=== PATIENT | female | born 1980 | race Caucasian/White ===

== ENCOUNTER 2018-09-14 18:56 | Inpatient (IN) ==
[2018-09-14 20:25] LABS: URINE SOURCE CLEAN CATCH
[2018-09-14 20:28] LABS: BILIRUBIN URINE NEGATIVE (NEGATIVE); BLOOD URINE NEGATIVE (NEGATIVE); COLOR YELLOW; GLUCOSE URINE NEGATIVE (NEGATIVE); KETONE URINE NEGATIVE (NEGATIVE); LEUKOCYTES URINE NEGATIVE (NEGATIVE); NITRITE URINE NEGATIVE (NEGATIVE); PROTEIN URINE TRACE mg/dL (NEGATIVE); SP GRAVITY URINE 1.021; TURBIDITY URINE CLEAR (CLEAR); UROBILINOGEN URINE NORMAL (NORMAL)
[2018-09-14 20:29] LABS: UR EPITHELIAL CELLS <10 /HPF (<10); URINE BACTERIA NEGATIVE /HPF; URINE RBC <10 /HPF (<10); URINE WBC <10 /HPF (<10)
[2018-09-14 20:50] LABS: BASO# 0.04 X1000 (0.0-0.2); BASO% 0.4 % (0.0-0.8); EOS# 0.08 X1000 (0.0-0.7); EOS% 0.8 % (0.0-10.0); HEMATOCRIT 44.8 % (37.0-47.0); HEMOGLOBIN 14.9 g/dL (12.0-16.0); IMM GRAN# 0.02 X1000 (0.0-0.04); IMM GRAN% 0.2 % (0.0-0.5); LYMPH# 2.18 X1000 (1.2-3.4); LYMPH% 22.5 % (20.5-51.1); MCH 31.6 PG (27-31); MCHC 33.3 g/dL (33-37); MCV 94.9 FL (81-99); MONO# 0.94 X1000 (0.11-0.59); MONO% 9.7 % (1.7-9.3); MPV 11.9 FL (7.4-10.4); NEUT# 6.45 X1000 (1.4-6.5); NEUT% 66.4 % (42.2-75.2); PLT 240 X1000 (130-400); RBC 4.72 XMIL (4.2-5.4); RDW 12.4 % (11.5-14.5); WBC 9.71 X1000 (4.8-10.8)
[2018-09-14 21:11] LABS: AGAP 12; ALBUMIN 4.1 g/dL (3.5-5.0); ALKALINE PHOSPHATASE 73 U/L (32-104); AMYLASE 56 U/L (20-200); BUN 8 mg/dL (8-22); CHLORIDE 104 mmol/L (98-107); COSMO 279; CREATININE 0.7 mg/dL (0.5-0.9); ESTIMATED GFR > 60; GLUCOSE 83 mg/dL (70-104); GOT 15 U/L (10-30); GPT 24 U/L (10-36); LIPASE 21 U/L (13-60); POTASSIUM 3.9 mmol/L (3.5-5.1); SODIUM 141 mmol/L (136-145); TCO2 25 mmol/L (25-35); TOTAL BILIRUBIN 0.44 mg/dL (0.20-1.00); TOTAL PROTEIN 8.1 g/dL (6.3-8.3)
[2018-09-14] MEDS ORDERED: ZOFRAN IM ONE (22:15)
[2018-09-14] MEDS ORDERED: NS 1,000 ML IV ONE (22:15)
[2018-09-14] MEDS ORDERED: TORADOL IV ONE (22:16)
[2018-09-15] MEDS ORDERED: TORADOL IV ONE (00:13)
[2018-09-15] MEDS ORDERED: ZOFRAN IM ONE (00:14)
--- NOTE | 2018-09-15 00:21 | PROVIDER DOCUMENTATION ---
This chart was entered by Talisha Reyna Scribe, acting as scribe for Toni Zamorano MD. HPI-Abdominal Pain/GI Problem - General Chief Complaint: Abdominal Pain Stated Complaint: GALLBLADDER PAIN Time Seen by Provider: 09/14/18 20:20 Source: patient Allergies/Adverse Reactions: Patient Allergies Allergy/AdvReac Type Severity Reaction Status Date / Time No Known Allergies Allergy Verified 01/12/13 13:17 Home Medications: Home Medication List Medication Instructions Recorded Confirmed Last Taken Type Amoxicillin 500 mg PO TID #30 tablet 02/28/14 Unknown Rx Naproxen 500 mg PO Q12H PRN PRN #20 tablet 02/28/14 Unknown Rx Prednisone 20 mg PO TID #12 tablet 02/28/14 Unknown Rx - History of Present Illness-ABD Nature of Presenting Problems: 38yof c/o 5 days nausea and vomiting. pt states pain is worse today and abd pain starts in ruq, is consistent and radiates down abd. pt has hx of gall stones and had gall bladder attack 6-8 years ago. pt denies fever, chills, and body aches. Abdominal Pain Onset Location: reports: RUQ Pain Radiation: reports: other (down abd) Quality of Pain: reports: aching Severity in ED: reports: mild Review of Systems - Adult - REVIEW OF SYSTEMS - ADULT Constitutional: reports: no symptoms reported. denies: chills, fever Eyes: reports: no symptoms reported Ears, Nose, Mouth & Throat: reports: no symptoms reported Cardiovascular: reports: no symptoms reported Respiratory: reports: no symptoms reported Gastrointestinal: reports: see HPI, abdominal pain (ruq), nausea, vomiting. denies: constipation, diarrhea, rectal bleeding Genitourinary: reports: no symptoms reported Musculoskeletal: reports: no symptoms reported Integumentary: reports: no symptoms reported Neurological: reports: no symptoms reported Psychiatric: reports: no symptoms reported Endocrine: reports: no symptoms reported Hematologic/Lymphatic: reports: no symptoms reported Allergic/Immunologic: reports: no symptoms reported All Other Systems: Reviewed and Negative Past History - Adult - PAST MEDICAL HISTORY-ADULT Review of Records: reports: Old Records Reviewed, Nursing Assessment Review, Medications Reviewed, Social history reviewed & non-contributory. Major Childhood Illnesses: reports: denies history Cardiovascular: reports: denies history Respiratory: reports: lung disease Gastrointestinal: reports: denies history Obstetrical/Gynecological: reports: denies history Genitourinary: reports: denies history Musculoskeletal: reports: denies history Neurological: reports: denies history Psychiatric: reports: denies history Endocrine/Immune: reports: denies history Other Conditions: reports: denies history - PRIOR SURGERIES/PROCEDURES Surgical/Procedure History: reports: reviewed, not pertinent - PRIOR HOSPITALIZATIONS Prior Hospitalizations: reports: for other non-related - IMMUNIZATION STATUS Childhood Immunizations: See Nurse Assessment Flu Vaccine: See Nurse Assessment - FAMILY HISTORY Family History: reviewed, not pertinent - SOCIAL HISTORY Smoking: cigarettes, greater than 1 pack/day Provider spent 3-5 mins advising pt. on dangers of tobacco.: Discussed manners to quit use, and f/u contacts for add'l counseling. Substance Use: none/never Physical Exam-General - PHYSICAL EXAM-ADULT Initial Vital Signs Reviewed: Yes - CONSTITUTIONAL General Appearance: appears well, alert, no apparent distress - EYES Eyes: PERRL/EOMI - HEAD, EARS, NOSE, MOUTH & THROAT HENMT: normocephalic/atraumatic, moist mucous membranes, normal ENT inspection - NECK Neck: non-tender, full range of motion, supple, normal inspection - RESPIRATORY Respiratory: chest non-tender, lungs clear, normal breath sounds - CARDIOVASCULAR Cardiovascular: normal peripheral pulses, regular rate, rhythm - GASTROINTESTINAL (ABDOMEN) Abdominal Exam: normal bowel sounds, non tender, soft. negative: guarding, rigid, rebound - LYMPHATIC Lymphatic: no adenopathy - MUSCULOSKELETAL Back Exam: normal inspection, no CVA tenderness, no vertebral tenderness Extremity: normal range of motion, non-tender, normal inspection Peripheral Pulses: radial (R): 2+, radial (L): 2+ - SKIN Integumentary: normal color, normal turgor, warm/dry - NEUROLOGIC Neurologic: crayon painter II-XII nml as tested, grossly normal, no motor/sensory deficits - PSYCHIATRIC Psych/Mental Status: normal mood/affect, normal thought content, normal thought process, oriented x 3 Progress - PLAN OF CARE/RESULTS Progress/Plan/Lab Results: Vital Signs - 8 hr 09/14/18 18:59 Temperature 97.9 F Pulse Rate 82 Respiratory Rate 18 Blood Pressure 160/99 O2 Sat by Pulse Oximetry 99 Bedside Urine ED: Urine Bedside Start: 09/14/18 19:04 Freq: ORDERED Status: Active Protocol: Activity Type Activity Date Activity User E-Sign Co-Sign Detail Recorded Client Recorded Date Recorded By Document 09/14/18 20:19 [id number] 09/14/18 20:20 [id number] 09/14/18 20:19 Point of Care [Bedside Point of Care] -Lot # [id number] - Results Negative -Control Line Visible? Yes -Additional Comment exp 2019-12-29 Laboratory Results - last 24 hr 09/14/18 09/14/18 09/14/18 19:12 19:12 20:13 WBC 9.71 RBC 4.72 Hgb 14.9 Hct 44.8 MCV 94.9 MCH 31.6 H MCHC 33.3 RDW Std Deviation 12.4 Plt Count 240 MPV 11.9 H Immature Gran % (Auto) 0.2 Neut % (Auto) 66.4 Lymph % (Auto) 22.5 [place] % (Auto) 9.7 H Eos % (Auto) 0.8 Baso % (Auto) 0.4 Immature Gran # (Auto) 0.02 Neut # (Auto) 6.45 Lymph # (Auto) 2.18 [place] # (Auto) 0.94 H Eos # (Auto) 0.08 Baso # (Auto) 0.04 Sodium 141 Potassium 3.9 Chloride 104 Carbon Dioxide 25 Anion Gap 12 BUN 8 Creatinine 0.7 Estimated GFR/1.73 m2 > 60 BUN/Creatinine Ratio 11 Glucose 83 Calculated Osmolality 279 Calcium 9.0 Total Bilirubin 0.44 AST 15 ALT 24 Alkaline Phosphatase 73 Total Protein 8.1 Albumin 4.1 Globulin 4.0 Albumin/Globulin Ratio 1.0 Amylase 56 Lipase 21 Urine Source CLEAN CATCH Urine Color YELLOW Urine Turbidity CLEAR Urine pH 6.0 Ur Specific [place] 1.021 Urine Protein TRACE A Ur Glucose (Stick) NEGATIVE Ur Ketones (Stick) NEGATIVE Urine Blood NEGATIVE Urine Nitrite NEGATIVE Urine Bilirubin NEGATIVE Urobilinogen Dipstick NORMAL Urine Leukocytes NEGATIVE Urine WBC (Auto) <10 Urine RBC (Auto) <10 U Epithel Cells (Auto) <10 Urine Bacteria (Auto) NEGATIVE Orders Category Date Time Status ED: Urine Bedside ORDERED Care 09/14/18 19:04 Active US GB < RUQ (LIMITED) [US] Stat Exams 09/14/18 20:21 Taken AMYLASE [CHEM] Stat Lab 09/14/18 19:12 Completed CBC WITH DIFF [HEME] Stat Lab 09/14/18 19:12 Completed CMP [COMPREHENSIVE METABOLIC PANEL] [CHEM] Stat Lab 09/14/18 19:12 Completed LIPASE [CHEM] Stat Lab 09/14/18 19:12 Completed URINALYSIS W/POSS RFLX CULT [URINALYSIS] Stat Lab 09/14/18 20:13 Completed 0.9% Sodium Chloride Inj [Ns] 1,000 ml Med 09/14/18 22:15 Active IV 999 mls/hr Ketorolac [Toradol] Med 09/14/18 22:16 Discontinued 30 mg IV NOW ONE Ondansetron [Zofran] Med 09/14/18 22:15 Discontinued 4 mg IM NOW ONE A/P: Acute cholycystitis. Dr Hayden notified at 12:05 am, admit to his service, NPO, NS @ 125 / hr, zosysn and ketorolac or pain as pt cannot have opiate RX. Result Diagrams: 09/14/18 19:12 09/14/18 19:12 - CONSULTS/PCP/HOSPITALIST Notification #1 *Consult/PCP/Hospitalist*: Dr Hayden Time Discussed: 12:05 Consult Disposition: Admit (will see pt in am, said place NPO, start NS, Zosyn, and ketoralac.) Departure - Departure Date of Disposition Decision: 09/15/18 Time of Disposition Decision: 00:21 DIAGNOSIS: Acute cholecystitis Disposition: ADMITTED INPATIENT 09 Certified Medical Emergency: Emergent Condition: Stable Additional Freetext Instructions: We have examined and treated you today on an emergency basis only. This was not a substitute for, or an effort to provide, complete medical care. In most cases, you must let your doctor check you again. Tell your doctor about any new or lasting problems. We cannot recognize and treat all injuries or illnesses in one Emergency Department visit. If you had special tests, such as X-rays or CT scans, will be reviewed by radiologist and will call you if there are any new suggestions Follow up with primary care provider in 1 to 2 days if no improvement. If you do not have a primary care provider, you need to choose one as soon as possible. Take medicines as prescribed. Monitor for any side effects or adverse events from medications. If any side effect, adverse event or rash develops, or if you suspect any other adverse reaction to the medication, then discontinue the medication immediately and contact clinic /PCP or go to the nearest ER. Narcotic meds / sedative meds instruction - patent advised not to drive, operate any machinery or go into water after taking meds as it may impair mental ability to react to the situation in an appropriate manner. Continue other current medicines. Follow up with PCP within 24-48 hours, or sooner if symptoms worsen or fail to improve. Patient / guardian verbalizes understanding of treatment plan, medication, and side effects and agrees with treatment plan. Patient leaves ER in stable condition and ambulatory state. Return to ER as needed. Discharge instructions reviewed verbally and given to patient in written form. Follow up with primary care provider. Referrals and Follow-Ups: None,PCP [Primary Care Provider] - - Critical Care Note This patient required my direct & personal management of CC.: No Attestation - Physician/ TAWNY Attestation Patient care was provided by Advanced Practice Provider:: No The physician spent face to face time with patient:: Yes Advanced Practice Provider documentation review:: Supervising physician onsite and consulted in the evaluation and care of this patient. The physician did have a face to face encounter with the patient. This chart was documented by the indicated scribe, (Talisha Reyna, Leora) and accurately reflects the services I performed and decisions made by me, Toni Zamorano MD, as attested by the provider's signature.
[2018-09-15] MEDS: ZOSYN 3.375 GM in NS 50 ML IV SCH ×5 (01:05→23:28)
[2018-09-15] MEDS: NS 1,000 ML IV ONE ×2 (01:16→03:46)
[2018-09-15] MEDS: OFIRMEV 1000 MG/ISOTONIC SOLN 1,000 MG/100 ML BOTTLE IV PRN ×2 (03:58→10:24)
[2018-09-15] MEDS ORDERED: TORADOL IV SCH (05:00)
[2018-09-15] MEDS: TORADOL IV PRN ×2 (05:52→18:11)
--- NOTE | 2018-09-15 06:36 | Diag Imaging Result Doc PS360 ---
US GB < RUQ (LIMITED) - 09/14/2018 INDICATION: RUQ pain TECHNIQUE: COMPARISON: None FINDINGS: The gallbladder is very distended. There is mild wall thickening of the gallbladder measuring 3 mm. There is a large shadowing gallstone the gallbladder measuring 2.4 cm. Common bile duct is slightly enlarged measuring 7 mm. The liver is moderately fatty. There is moderate right hydronephrosis. No right renal mass. The pancreas appears normal. Aorta, IVC, and main portal vein are patent. IMPRESSION: 1. Findings concerning for acute cholecystitis. 2. Moderate right hydronephrosis. Consider a CT renal stone search for further evaluation. 3. Hepatic steatosis. 4. Borderline dilation of the common bile duct, indeterminate. Electronically signed by Antonio Martinez 09/15/2018 6:34 AM
--- NOTE | 2018-09-15 08:18 | HISTORY AND PHYSICAL ---
HISTORY OF PRESENT ILLNESS: Kyra Dove is a 38-year-old white female who presented to our emergency department with right upper quadrant abdominal pain. She had a known gallstone and has had gallbladder attacks in the past. She underwent an ultrasound, which documented a large stone within her gallbladder. Her liver function tests were normal, but there is a question of whether she was beginning to have acute cholecystitis, and we were asked to admit her. PAST MEDICAL HISTORY: She is a smoker of 1 pack of cigarettes a day. She is under rehab for opioid abuse. She is not allowed to take pain medicine. MEDICATIONS: She has taken ibuprofen frequently over the last week. Otherwise, no other medications. ALLERGIES: No known drug allergies. 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 REVIEW OF SYSTEMS: A 14-point review of systems was performed and was essentially negative. FAMILY HISTORY: Noncontributory. PHYSICAL EXAMINATION: GENERAL: Ms. Dove is a young, white female, who is overweight. She is in no acute distress. HEENT: No jaundice. No oral lesions. Satisfactory dentition. No cervical or supraclavicular lymphadenopathy. HEART: Regular rate. LUNGS: Clear to auscultation and percussion bilaterally. ABDOMEN: Soft. She has no previous scars. No evidence of hernia. There is no palpable mass. She did seem to be mildly tender in the right upper quadrant. She had no costovertebral tenderness. RECTAL/VAGINAL: Not performed. EXTREMITIES: She does have palpable peripheral pulses. No peripheral edema. NEUROLOGICAL: No focal deficits. She is awake and cooperative. IMAGING AND LABORATORY DATA: Ultrasound documented gallstones. White blood cell count is normal, hematocrit is 45%. Electrolytes are within normal limits. Liver function tests within normal limits. There is no blood in her urine, and it appears to be clean. IMPRESSION: Symptomatic gallstones in a patient who has been admitted through our emergency department. PLAN: Laparoscopic, possible open cholecystectomy today. I have discussed the procedure in detail with her at the bedside on , including its risks of bleeding, infection, injury to the extrahepatic bile ducts requiring reoperation, conversion of laparoscopic to open cholecystectomy, bile leak requiring reoperation for drainage, and injury to intra-abdominal contents for trocar placement. She understands the need for surgery and its risks, and she wants to proceed. cc: Viki Hayden MD
[2018-09-15] MEDS ORDERED: DIPRIVAN 1% ONE (10:57)
[2018-09-15] MEDS ORDERED: XYLOCAINE-MPF 2% ONE ×2 (10:58→15:15)
[2018-09-15] MEDS ORDERED: QUELICIN (DOSE) ONE ×2 (10:59→15:15)
[2018-09-15] MEDS ORDERED: SENSORCAINE-MPF 0.5%/EPI 1:200,000 ONE (11:47)
[2018-09-15] MEDS ORDERED: LR 1,000 ML ONE ×2 (11:48→14:42)
[2018-09-15] MEDS ORDERED: SODIUM CHLORIDE 0.9% ONE (11:48)
[2018-09-15] MEDS ORDERED: FENTANYL ONE ×2 (12:30→15:18)
[2018-09-15] MEDS ORDERED: DECADRON ONE (13:22)
[2018-09-15] MEDS ORDERED: ZOFRAN ONE (13:22)
[2018-09-15] MEDS ORDERED: TORADOL ONE (13:25)
[2018-09-15] MEDS ORDERED: ROBINUL ONE (13:52)
[2018-09-15] MEDS ORDERED: NEOSTIGMINE ONE (13:52)
[2018-09-15] MEDS: DILAUDID ONE ×2 (14:26→14:29)
--- NOTE | 2018-09-15 14:53 | OPERATIVE NOTE ---
PROCEDURE DATE: 09/15/2018 PREOPERATIVE DIAGNOSIS: Acute cholecystitis with cholelithiasis. POSTOPERATIVE DIAGNOSIS: Acute cholecystitis with cholelithiasis. PRINCIPAL PROCEDURE PERFORMED: Laparoscopic cholecystectomy without intraoperative cholangiogram. SURGEON: Viki Hayden MD. ANESTHESIA: General in addition to local anesthetic. ESTIMATED BLOOD LOSS: 50 mL. DRAINS: None. INDICATIONS: Kyra kaur is a 38-year-old, overweight, white female who presented to our emergency department during the night with epigastric and right upper quadrant pain. Ultrasound suggested gallstones and a thickened gallbladder wall. It was felt that she had acute cholecystitis and she was admitted for a cholecystectomy. FINDINGS: Her gallbladder was tightly distended with white bile within it. The chandler of her gallbladder were thickened and she had stones within the gallbladder. Her cystic duct was quite short and we decided against an intraoperative cholangiogram. The liver appeared to be healthy, as did the surface of the bowel. No other intra-abdominal pathology was noted. DESCRIPTION OF PROCEDURE: The patient was brought to the operating room, placed supine, received general anesthesia, and was intubated. Her abdomen was prepped and draped within a sterile field. We made a small incision below the umbilicus with a 15 blade scalpel. Veress needle was introduced through this incision into the abdomen. Pneumoperitoneum was established. The Veress needle was removed. We placed an 11 mm trocar through this incision into the abdomen. The camera was placed through this port and the abdomen was explored for injury. There was none. Three other trocars were placed along the right costal margin under direct vision of the camera. We placed an 11 mm trocar just to the right of the midline and two 5 mm trocars in our midclavicular and anterior axillary lines. Through our most lateral port, we decompressed the gallbladder with a needle and suction. White bile was sucked out of the gallbladder. The chandler of the gallbladder with thickened and inflamed. I used a grasper with teeth to grab the fundus of the gallbladder through our most lateral port and retracted it superiorly, along with the right lobe of the liver. Another grasper was used to grab the body of the gallbladder. We had to dissect some adhesions between the omentum and the underside of the gallbladder. We dissected those down to the to the triangle of [place] which we bluntly dissected. We identified the cystic duct along its length. It was a short cystic duct. We placed a clip distally at the cystic duct-gallbladder junction. Because this duct was so short and inflamed, we decided against doing a cholangiogram. We were comfortable with the anatomy. Two clips were placed proximally on the cystic duct. We divided the cystic duct between clips using hook scissors. The cystic artery was identified. Again, it was fairly short. Two clips were placed proximally and the cystic artery was divided right along the gallbladder using hook scissors. The spatula cautery was used to remove the gallbladder from the liver bed. We used an endobag to remove the gallbladder through our umbilical incision, which we had to enlarge to get the gallbladder out. We placed the trocar back through this incision. The area of operation was thoroughly inspected, irrigated, and the irrigation was removed with suction. There was no evidence of ongoing bleeding or bile leak. No drains were left. All trocars were removed under direct vision of the camera. The pneumoperitoneum was allowed to dissipate. I used a 0 running Vicryl stitch to reapproximate the fascia at the umbilicus and all skin was closed with 4-0 Monocryl subcuticular stitches. Steri-Strips were applied. She tolerated the procedure well with plans for her to go to the recovery room and then be readmitted to the floor. cc: Viki Hayden MD
[2018-09-15] MEDS ORDERED: SODIUM CHLORIDE 0.9% 0 ML ONE (15:15)
[2018-09-15] MEDS ORDERED: NEO-SYNEPHRINE ONE (15:15)
[2018-09-15] MEDS ORDERED: ZEMURON ONE (15:15)
[2018-09-15] MEDS ORDERED: EPHEDRINE ONE (15:15)
[2018-09-15] MEDS ORDERED: PHENERGAN IV PRN (15:39)
[2018-09-15] MEDS ORDERED: SODIUM CHLORIDE 0.9% INJ PRN (15:45)
[2018-09-15] MEDS: OFIRMEV 1000 MG/ISOTONIC SOLN 1,000 MG/100 ML BOTTLE IV SCH ×2 (16:44→22:19)
[2018-09-15] MEDS: LR 1,000 ML IV SCH (16:45)
[2018-09-15] MEDS: PERIDEX MT SCH (22:19)
[2018-09-16] MEDS: OFIRMEV 1000 MG/ISOTONIC SOLN 1,000 MG/100 ML BOTTLE IV SCH ×2 (03:11→09:26)
[2018-09-16] MEDS: TORADOL IV PRN ×2 (03:15→09:25)
[2018-09-16] MEDS: LR 1,000 ML IV SCH (05:38)
[2018-09-16] MEDS: ZOSYN 3.375 GM in NS 50 ML IV SCH (05:38)
[2018-09-16 08:20] VITALS: BP 121/70
[2018-09-16] MEDS: PERIDEX MT SCH (09:25)
--- NOTE | 2018-09-16 11:23 | DISCHARGE SUMMARY ---
ADMISSION DATE: 09/15/2018 DISCHARGE DATE: 09/16/2018 ADMITTING DIAGNOSIS: Acute cholecystitis with cholelithiasis. DISCHARGE DIAGNOSIS: Acute cholecystitis with cholelithiasis. PRINCIPAL PROCEDURE: Laparoscopic cholecystectomy on 09/15/2018. DISCHARGE DISABILITIES: Full. DISCHARGE MEDICATIONS: Ibuprofen and Tylenol for pain. DISCHARGE DIET: Regular. DISCHARGE DISPOSITION: She will return to our outpatient offices in 7 to 10 days for followup. HOSPITAL COURSE: Ms. Kyra kaur is a 38-year-old, overweight female who has a history of drug abuse that she is working on controlling and did not want to take any pain medicines during her hospitalization. She was seen in our emergency department which included an abdominal ultrasound because of her abdominal pain. It documented gallstones and thickening of the gallbladder wall, consistent with acute cholecystitis. She was admitted to my service by the emergency department physician and later on the day of admission, she went to the operating room for a laparoscopic cholecystectomy. We felt the operation went well. We did not leave any drains and after surgery, she went to the recovery room and then to the [address] [place] [id number] jara. On postop day 1, she appeared to be comfortable. She was independent. Her trocar sites were healing well. She was able to tolerate liquids. At discharge, her heart rate was 67, blood pressure 121/70, O2 saturation 100%. No work of breathing. She was afebrile, on no antibiotic. She knows to contact me with any problems. Otherwise, I will see her in 7 to 10 days. cc: Viki Hayden MD
== END 2018-09-16 12:11 | disposition home or self-care (01) | DRG 419 ==
LOC: ED 18:56 → 4N 09-15 01:05
PROVIDERS: ADMIT Surgery; ATTEND Surgery
CPT/HCPCS: 76705; 80053; 81001; 81025; 82150; 83690; 85025; 88304; 94761; 94799; 96361; 96372; 96374; 96375; 96376; 99285; A9270; C1751; J0131; J0330; J1100; J1170; J1885; J2370; J2405; J2543; J3010; J7030; J7120; Q9966; Q9967